=== PATIENT | female | born 1955 | race Caucasian/White ===

== ENCOUNTER 2018-04-14 11:34 | Observation (INO) ==
[2018-04-14 12:23] LABS: Basophils % 0.6 %; Eosinophils # 0.3 K/mcL (0.0-0.6); Eosinophils % 5.4 %; Hematocrit 34.8 % (35.3-44.9); Hemoglobin 11.2 g/dL (11.5-15.4); Immature Granulocytes % 0.6 % (0-4); Lymphocytes # 1.6 K/mcL (0.6-4.6); Lymphocytes % 29.9 %; Mean Corpuscular HGB Conc 32.2 g/dL (31.6-35.5); Mean Corpuscular Hemoglobin 27.6 pg (28.0-33.3); Mean Corpuscular Volume 85.7 fL (83.0-100.0); Mean Platelet Volume 11.2 fL (9.4-12.4); Monocytes # 0.3 K/mcL (0.0-1.3); Monocytes % 5.9 %; Neutrophils # 3.1 K/mcL (1.6-8.9); Platelet Count 220 K/mcL (140-400); Red Blood Count 4.06 M/mcL (3.82-4.97); Red Cell Distribution Width 14.4 % (11.5-14.5); Segmented Neutrophils % 57.6 %
[2018-04-14 12:28] LABS: Prothrombin Time 11.3 Seconds (9.4-12.1)
[2018-04-14] MEDS ORDERED: Aspirin 81 MG TAB.CHEW PO STA (12:47)
--- NOTE | 2018-04-14 12:47 | Emergency Department Note ---
Disposition Clinical Impression: Abnormal EKG Chest pain Qualifiers: Chest pain type: unspecified Qualified Code(s): R07.9 - Chest pain, unspecified Disposition: Admitted As Inpatient Condition: Good Chest Pain HPI - General Chief Complaint: ED Chest Pain Stated Complaint: chest pain Source: patient, family Limitations: no limitations Vital Signs Reviewed: Yes Nursing Notes Reviewed: Yes - History of Present Illness HPI Narrative: Patient is a diabetic, hypertensive, hyperlipidemia who presents to the emergency department for evaluation of chest pain. Started at 8 AM. Describes in the center of her chest. Sharp without radiation however there is associated pressure that also radiates to left arm. Associated nausea and mild left pheresis that resolved upon arrival to the emergency department. Patient continues to have chest pain which she describes as 6 out of 10. Significant family history of heart disease. Last stress test was 3 years ago. Severity scale (1-10): 8 - Related Data Allergies Allergy/AdvReac Type Severity Reaction Status Date / Time No Known Allergies Allergy Verified 04/14/18 11:39 Review of Systems: CONSTITUTIONAL: Diaphoresis No weight loss, fever, chills, weakness or fatigue. HEENT: Eyes: No visual changes. Ears, Nose, Throat: No hearing loss, difficulty talking or unable to swallow. SKIN: No rash or itching. CARDIOVASCULAR: Chest pain and pressure RESPIRATORY: No shortness of breath, cough or sputum. GASTROINTESTINAL: Nausea No anorexia, vomiting or diarrhea. No abdominal pain or blood. GENITOURINARY: No burning on urination or hematuria. NEUROLOGICAL: No headache, dizziness, syncope, paralysis, ataxia, numbness or tingling in the extremities. No change in bowel or bladder control. MUSCULOSKELETAL: No muscle pain, back pain, joint pain or stiffness. Chest Pain PMH - Past Medical History Medical history: Reports: diabetes, hyperlipidemia, hypertension, thyroid disease Psychiatric history: Reports: no psych history - Social History Smoking Status: Never smoker Alcohol use: Reports: occasionally Drug use: Reports: none Physical Exam General: Well appearing, nontoxic, no acute distress Head: Normocephalic Atraumatic Eyes: PERRL, EOMI ENT: Airway patent, no stridor Neck: supple, Chest: Mildly decreased breath sounds bilaterally with associated mild wheeze Cardiac: Regular rate and rhythm, no murmurs, rubs or gallops Abdomen: soft, nontender, nondistended; no guarding, rebound, or tenderness to percussion Musculoskeletal: Calves symmetric, nontender, Skin: No rash, normal skin tone Neuro: Alert and Oriented to person, place, and time; No focal deficit - General Limitations: no limitations General appearance: alert, in no apparent distress Course - Reevaluation(s) Reevaluation #1: Patient was given aspirin. Nitroglycerin improved symptoms. EKG changes are nonspecific concerning for ACS. Patient will be admitted for further evaluation. - Consultations Consultation #1: Discussed with hospitalist. Patient acceptedt for admission. Vital Signs Temperature 98.7 F 04/14/18 11:39 Pulse Rate 75 04/14/18 11:39 Respiratory Rate 20 04/14/18 11:39 Blood Pressure 175/94 04/14/18 11:39 O2 Sat by Pulse Oximetry 97 04/14/18 11:39 Temperature 98.7 F 04/14/18 11:56 Pulse Rate 75 04/14/18 11:56 Respiratory Rate 18 04/14/18 14:01 Blood Pressure 139/79 04/14/18 14:01 O2 Sat by Pulse Oximetry 97 04/14/18 11:56 Oxygen Delivery Oxygen Delivery Room Air Chest Pain - Medical Records Medical records reviewed: Yes I reviewed the patient's medical records. - Lab Data Lab results reviewed: Yes I reviewed the patient's lab results. Result diagrams: 04/14/18 12:00 04/14/18 12:00 Lab Results 04/14/18 04/14/18 04/14/18 Range/Units 12:00 12:00 12:00 WBC 5.4 (4.3-11.1) K/mcL RBC 4.06 (3.82-4.97) M/mcL Hgb 11.2 L (11.5-15.4) g/dL Hct 34.8 L (35.3-44.9) % MCV 85.7 (83.0-100.0) fL MCH 27.6 L (28.0-33.3) pg MCHC 32.2 (31.6-35.5) g/dL RDW 14.4 (11.5-14.5) % Plt Count 220 (140-400) K/mcL MPV 11.2 (9.4-12.4) fL Immature Gran % 0.6 (0-4) % Seg Neutrophils % 57.6 % Lymphocytes % 29.9 % Monocytes % 5.9 % Eosinophils % 5.4 % Basophils % 0.6 % Neutrophils # 3.1 (1.6-8.9) K/mcL Lymphocytes # 1.6 (0.6-4.6) K/mcL Monocytes # 0.3 (0.0-1.3) K/mcL Eosinophils # 0.3 (0.0-0.6) K/mcL Basophils # 0.0 (0.0-0.2) K/mcL PT 11.3 (9.4-12.1) Seconds INR 1.0 Sodium 139 (136-145) mEq/L Potassium 3.9 (3.5-5.1) mEq/L Chloride 104 (98-107) mEq/L Carbon Dioxide 22 L (23-29) mEq/L BUN 10 (8-23) mg/dL Creatinine 0.81 (0.60-1.20) mg/dL Est GFR ( Amer) > 60 (> 60) Est GFR (Non-Af Amer) > 60 (> 60) BUN/Creatinine Ratio 12 (6-26) Glucose 210 H (70-105) mg/dL Calculated Osmolality 293 (280-300) Calcium 9.5 (8.6-10.3) mg/dL Troponin I < 0.03 (< 0.04) ng/mL - Radiology Data Radiology results reviewed: Yes I reviewed the patient's radiology results. - EKG Data EKG attestation: Yes I reviewed and interpreted this EKG. EKG results narrative: EKG shows sinus rhythm with a ventricular rate of 69. MO interval 164. QRS 96. QTC 426. Patient has no significant ST elevations or depressions however she does have T-wave inversions in V2 through V6. Inversions in 1 and aVL. He is are new changes compared to previous of 07/17/2012. Heart Score - Score History: Highly Suspicious EKG: Non Specific repolarisation Disturbance Age: 45-65 Risk Factors: Equal/Greater than 3 risk factor or history of atherosclerotic disease Troponin: Less than normal limit HEART Score Total: 6
[2018-04-14 12:49] LABS: Troponin I < 0.03 ng/mL (< 0.04)
[2018-04-14] MEDS ORDERED: Ipratropium/Albuterol Neb 3 ML IH ONE (12:56)
[2018-04-14] MEDS: Nitroglycerin 0.4 MG TAB.SUBL SL PRN ×2 (12:59→13:07)
[2018-04-14 13:01] LABS: BUN/Creatinine Ratio 12 (6-26); Blood Urea Nitrogen 10 mg/dL (8-23); Calcium 9.5 mg/dL (8.6-10.3); Carbon Dioxide 22 mEq/L (23-29); Chloride 104 mEq/L (98-107); Glucose 210 mg/dL (70-105); Osmolality,Calculated 293 (280-300); Potassium 3.9 mEq/L (3.5-5.1); Sodium 139 mEq/L (136-145); eGFR For Non-African Americans > 60 (> 60)
[2018-04-14] MEDS ORDERED: Acetaminophen 325 MG TABLET PO PRN (15:19)
[2018-04-14] MEDS ORDERED: *HR* HYDROcodone/Acet 5/325 mg TABLET PO PRN (15:19)
[2018-04-14] MEDS ORDERED: Naloxone 0.4 MG/ML INJ IVP PRN (15:19)
[2018-04-14] MEDS ORDERED: *HR* OxyCODONE Immed Rel 5 MG TABLET PO PRN (15:19)
[2018-04-14] MEDS ORDERED: *HR* Dextrose 50 % in Water (Syg) 50 ML SYRINGE IVP PRN (15:24)
[2018-04-14] MEDS ORDERED: D5% in Water 1,000 ML IVC PRN (15:24)
[2018-04-14] MEDS ORDERED: Dextrose Gel 15 GM/37.5 ML TUBE PO PRN ×2 (15:24)
[2018-04-14] MEDS ORDERED: Ondansetron 4 MG/2 ML VIAL IVP PRN (15:25)
--- NOTE | 2018-04-14 16:16 | Internal Med History&Physical ---
<YanetLasha - Last Filed: 04/14/18 22:51> Date of Encounter: 04/14/18 Time of Encounter: 14:30 Internal Medicine - H&P: HPI Chief complaint: CP Admitted From: Emergency Dept Plans for Post Hospital Care: Home History of present illness: Ms. Cadena is a 62 year old female w/PMH of diabetes, HLD, HTN, thyroid disease , rheumatoid arthritis, and chronic back pain presents from the ED with chief complaint of chest pain that began at 8 AM today as centralized pain in the chest that patient describes as sharp and stabbing with pressure that comes and goes. Patient states symptoms began at rest. Patient reports also having similar symptoms Wednesday evening as well as several years ago. Associated symptoms: Nausea, and pain in left leg and left arm. No alleviating or aggravating factors. Patient states she had previous cardiac workup approximately 3 years ago that was unremarkable. Denies recent illness, fever, chills, vomiting, changes in vision, palpitations, shortness of breath, abdominal pain, chest congestion, dizziness, lightheadedness, numbness, tingling , pre-syncope, or syncope. Past Med Surg Social Fam HX - Past Medical History Source: patient, old records reviewed, obtained from family Medical history: diabetes, hyperlipidemia, hypertension, thyroid disease Psychiatric history: no psych history - Past Surgical History Surgical History: appendectomy, cholecystectomy, hysterectomy Additional surgical history: back surgery, tonsilectomy. - Social History Smoking Status: Never smoker Smokeless Tobacco Status: No Alcohol use: occasionally Drug use: none Occupational status: employed Current living situation: Home Activity Level: Independent ambulation Recent Out of Country Travel Within the Last 8 Weeks: No Exposure or Possible Exposure to Illness During Travel: No - Family History Father Race: Family Member Ethnicity: Non- Living Status: Age at : 62 Cause of : [place] Hx Family Cardiac Disorders: Yes ([place], CAD, HTN, CVA) Hx Family Endocrine Disorder: Yes (DM) Hx Family Neurologic Disorders: Yes (CVA) Mother Race: Family Member Ethnicity: Non- Living Status: Age at : 83 Cause of : CHF Hx Family Cardiac Disorders: Yes (CHF, CAD, CVA) Hx Family Neurologic Disorders: Yes (CVA, Dementia) Sister Race: Family Member Ethnicity: Non- Living Status: Still Living Hx Family Cardiac Disorders: Yes (Afib, HTN, HLD) Internal Medicine - H&P: Meds Albuterol Sulfate [Albuterol Inhaler] 2 puff IH Q4H PRN 04/14/18 [History] Benzonatate [Tessalon] 200 mg PO Q8H 04/14/18 [History] Fluticasone Propionate Nasal [Flonase] 50 mcg NS BID 04/14/18 [History] Gemfibrozil [Lopid] 600 mg PO BID 04/14/18 [History] GlipiZIDE [Glipizide ER] 10 mg PO BID 04/14/18 [History] Levothyroxine Sodium 88 mcg PO DAILY 04/14/18 [History] Losartan/Hydrochlorothiazide [Losartan-Hctz 50-12.5 mg Tab] 1 tab PO DAILY 04/14 [History] Metformin HCl [Metformin HCl] 1,000 mg PO BIDWM 04/14/18 [History] Pantoprazole Sodium [Protonix] 40 mg PO DAILY 04/14/18 [History] Promethazine/Codeine [Phenergan/Codeine] 5 ml PO Q6HR PRN 04/14/18 [History] Simvastatin [Zocor] 40 mg PO HS 04/14/18 [History] amLODIPine [Norvasc] 5 mg PO DAILY 04/14/18 [History] 3 Allergy/AdvReac Type Severity Reaction Status Date / Time No Known Allergies Allergy Verified 04/14/18 11:39 All Systems PM: A 10-system review of systems was performed and is negative for pertinent findings except as documented above in the HPI. - Constitutional Constitutional: no chills, no fever(s), no night sweats - EENT Eyes: no change in vision, no discharge, no pain, no photophobia Ears: no ear discharge, no ear pain, no tinnitus Nose, mouth and throat: no dysphagia, no nasal discharge, no neck pain, no sore throat - Breasts Breasts: as per HPI - Cardiovascular Cardiovascular ROS IM: as per HPI, chest pain, no diaphoresis, no dyspnea, no lightheadedness, no palpitations, no syncope - Respiratory Respiratory: no cough, no dyspnea, no wheezing, no excessive phlegm production - Gastrointestinal Gastrointestinal: as per HPI, nausea, no abdominal pain, no diarrhea, no hematemesis, no hematochezia, no melena, no vomiting - Genitourinary Genitourinary: no change in urinary stream, no dysuria, no flank pain, no hematuria Menstruation: as per HPI, post hysterectomy - Musculoskeletal Musculoskeletal ROS IM: as per HPI, arthralgias, back pain, no numbness, no tingling - Integumentary Integumentary IM: no rash, no unusual bruising - Neurological Neurological ROS: no confusion, no convulsions, no focal weakness, no numbness, no tingling, no tremor(s) - Psychiatric Psychiatric: as per HPI - Endocrine Endocrine IM: as per HPI - Hematologic/Lymphatic Hematologic/Lymphatic: no easy bruising - Allergic/Immunologic Allergic/Immunologic: as per HPI - Constitutional Vitals: Temp Pulse Resp BP Pulse Ox 97.8 F 61 18 153/92 98 04/14/18 14:28 04/14/18 14:28 04/14/18 14:28 04/14/18 14:28 04/14/18 14:28 General appearance: Present: cooperative, A&O X 3, pleasant, no acute distress, obese, answers questions appropriately - Head Head exam: Present: atraumatic, normocephalic - Eye Eye exam: Present: PERRL, conjuntiva pink, sclera anicteric Pupils: Present: PERRL - ENT ENT exam: Present: normal exam - Neck Neck exam general surgery: Present: normal inspection, supple, trachea midline. Absent: lymphadenopathy - Respiratory Respiratory exam: Present: CTAB. Absent: accessory muscle use, rales, rhonchi, wheezes - Cardiovascular Cardiovascular exam: Present: RRR, +S1, +S2. Absent: diastolic murmur, gallop, rubs, systolic murmur - GI/Abdominal GI/Abdominal exam: Present: normal bowel sounds, soft, no peritoneal signs. Absent: distended, tenderness - Rectal Rectal exam: Present: deferred - Additional comments: exam deferred. - Extremities Exam Extremities exam: Present: warm, radial pulses palpable and symmetrical. Absent : calf tenderness, cyanotic, pedal edema - Back Exam Back exam: Present: normal inspection - Neurological Exam Neurological exam: Present: CN II-XII intact, oriented X3, no focal deficits. Absent: pronater drift, facial droop, speech deficit - Psychiatric Psychiatric exam: Present: normal affect, normal mood - Skin Skin exam: Present: dry, intact Internal Med - H&P Results - Labs CBC & Chem 7: 04/14/18 12:00 04/14/18 12:00 - EKG Data EKG shows normal: sinus rhythm - EKG Data Prior EKG available for review: yes EKG comments: 04/14/18 16:26 EKG dated 07/27/12 shows sinus rhythm with nonspecific anterolateral ST-T changes. EKG dated 04/14/18 shows sinus rhythm with ST deviation and moderate T-wave abnormality. Consider anterolateral ischemia. - Impressions Impressions Chest X-Ray 04/14/18 12:01 IMPRESSION: Bilateral right greater left hilar/perihilar prominence which is nonspecific and may relate to pneumonia, vascular congestion, bronchitis or possibly technique. RECOMMENDATIONS: Dedicated PA and lateral views of the chest to better assess D/ / Tere Luther MD / Tere Luther MD Interpreting Provider: Tere Luther MD - Assessment and plan (1) Chest pain Current Visit: Yes Status: Acute Assessment and plan: Acute CP that patient states began this morning at 8 a.m. and has been intermittent. Patient reports chest pain as centralized in chest with radiation to her left arm and left leg. Associated symptoms: Nausea. Denies history of previous KS or stent placement. Also denies recent cardiac workup. Initial troponin <0.03. Will trend. Aspirin given in ED. Lipitor 80 mg now. Nitroglycerin SL when necessary. Continuous cardiac telemetry. Echocardiogram. Nothing by mouth at midnight for a.m. stress test if troponins remain normal. Consider cardiology consult if troponins, Echocardiogram, and/ or stress test results abnormal. Pt. discussed w/Dr. Velazquez who agrees w/plan of care. Pt. is high risk for further morbidity and cardiac event due to current CP symptoms for the past two years, Wednesday, and today that are unresolved, hx; and risk factors of diabetes, HLD, HTN, and current obesity. Observation. Qualifiers: Chest pain type: other chest pain Qualified Code(s): R07.89 - Other chest pain; R07.8 - Other chest pain (2) Abnormal EKG Current Visit: Yes Status: Acute Assessment and plan: Acute abnormal EKG today shows sinus rhythm with ST deviation and moderate T- wave abnormality. Consider anterolateral ischemia. Previous EKG on 07/27/12 shows sinus rhythm with nonspecific anterolateral ST-T changes. Continuous cardiac telemetry to monitor. Initial troponin <0.03. Will trend. (3) Nausea Current Visit: Yes Status: Acute Assessment and plan: Acute nausea w/CP sx. IVP Zofran 4 mg every 6 hours when necessary for nausea and vomiting. (4) Diabetes Current Visit: Yes Status: Chronic Assessment and plan: Hx of chronic diabetes. Hold metoprolol and continue glipizide. Add low-dose correction insulin sliding scale hypoglycemic protocol. BG checks before meals at bedtime. A1c in a.m. labs. Qualifiers: Diabetes mellitus type: type 2 Diabetes mellitus long term care phlebotomist insulin use: unspecified long term care phlebotomist insulin use status Diabetes mellitus complication status : with unspecified complications Qualified Code(s): E11.8 - Type 2 diabetes mellitus with unspecified complications (5) HLD (hyperlipidemia) Current Visit: Yes Status: Chronic Assessment and plan: Hx of chronic HLD. Lipid panel in a.m. labs. 80 mg Lipitor ONCE d/t CP. Continue Lopid and Zocor. Qualifiers: Hyperlipidemia type: pure hypercholesterolemia Qualified Code(s): E78.00 - Pure hypercholesterolemia, unspecified; E78.0 - Pure hypercholesterolemia (6) HTN (hypertension) Current Visit: Yes Status: Chronic Assessment and plan: Hx of chronic HTN. Monitor pt. and VS. continue patient's losartan/ hydrochlorothiazide and Norvasc. IVP hydralazine 10 mg every 6 hours when necessary with parameters. Qualifiers: Hypertension type: essential hypertension Qualified Code(s): I10 - Essential (primary) hypertension (7) Thyroid disease Current Visit: Yes Status: Chronic Assessment and plan: Hx of chronic thyroid disease. TSH and Free T4 in a.m. labs. Continue patient' s levothyroxine. (8) DVT prophylaxis Current Visit: Yes Status: Acute Assessment and plan: Bilateral SCDs on LEs for DVT prophylaxis d/t pts. report of intermittent rectal bleeding that she has been checked for but of unknown etiology. - Time Spent With Patient Total time spent is greater than 50% in coordination of care (as documented) at patient's floor/unit and/or counseling patient: Greater than 35 minutes <Eddie Velazquez - Last Filed: 04/15/18 12:58> Date of Encounter: 04/14/18 Internal Medicine - H&P: HPI History of present illness: Ms. Cadena is a 62 year old female All Systems PM: A 10-system review of systems was performed and is negative for pertinent findings except as documented above in the HPI. - Constitutional Vitals: Temp Pulse Resp BP Pulse Ox 98.3 F 70 18 136/78 97 04/15/18 12:39 04/15/18 12:39 04/15/18 12:39 04/15/18 12:39 04/15/18 12:39 Internal Med - H&P Results - Labs CBC & Chem 7: 04/15/18 01:17 04/15/18 01:17 Labs: Short CBC 04/15/18 Range/Units 01:17 WBC 4.9 (4.3-11.1) K/mcL Hgb 10.6 L (11.5-15.4) g/dL Hct 32.8 L (35.3-44.9) % Plt Count 207 (140-400) K/mcL Neutrophils # 2.2 (1.6-8.9) K/mcL BMP 04/15/18 01:17 Sodium 136 Potassium 4.0 Chloride 111 H Carbon Dioxide 26 BUN 11 Creatinine 0.92 Glucose 211 H Calcium 9.4 Cardiac Enzymes 04/14/18 04/15/18 Range/Units 19:32 01:17 Troponin I < 0.03 < 0.03 (< 0.04) ng/mL Liver Function 04/15/18 Range/Units 01:17 Total Bilirubin 0.4 (0.3-1.0) mg/dL AST 20 (13-39) Units/L ALT 15 (7-52) Units/L Alkaline Phosphatase 63 (34-104) Units/L Albumin 4.2 (3.5-5.7) g/dL - Impressions ITS Impressions Echocardiogram 04/14/18 15:23 Impressions: LVEF 60%. Moderate left ventricular diastolic dysfunction. Normal right ventricular structure and function. Mild tricuspid regurgitation. No pulmonary hypertension. Left Ventricular Wall Motion: Rest Echo Findings All wall segments showed normal motion. Findings: Study Quality * Technically adequate exam. ECG Findings * Normal sinus rhythm. Left Ventricle * LVEF 60%. * Normal LV chamber size, wall thickness and function. * Moderate left ventricular diastolic dysfunction. Right Ventricle * Normal right ventricular structure and function. Left Atrium * Mildly dilated left atrium. Right Atrium * Normal right atrial size. Aortic Valve * No aortic regurgitation. * Aortic valve not well visualized. * No aortic stenosis. Mitral Valve * Normal mitral valve structure. * No mitral stenosis. * Trace mitral regurgitation. Tricuspid Valve * Normal tricuspid valve structure. * Mild tricuspid regurgitation. Pulmonic Valve * Pulmonic valve is not well visualized. * No pulmonic stenosis. * No pulmonic regurgitation. Pulmonary Artery * Pulmonary artery not well visualized. Aorta * Normally sized aortic root. Pericardium * There is no pericardial effusion present. Interatrial Septum * No evidence of PFO by color Doppler. IVC * The IVC is not well evaluated. - Attending Attestation I SAW/EXAMINED AND EVALUATED THE PATIENT WITH THE MEDICAL REIMBURSEMENT MANAGER/PA/ ON THE DAY OF ADMISSION. THE CASE WAS DISCUSSED WITH HIM/HER. I AGREE WITH THE FINDINGS/PLAN , DOCUMENTED IN THE MEDICAL REIMBURSEMENT MANAGER/PA'S H&P. THE DOCUMENT WAS EDITED BY ME TO CORRECT ERRORS AND ADD MISSING DATA. - Assessment and plan (1) Chest pain Current Visit: Yes Status: Acute Qualifiers: Chest pain type: other chest pain Qualified Code(s): R07.89 - Other chest pain; R07.8 - Other chest pain (2) Abnormal EKG Current Visit: Yes Status: Acute (3) Nausea Current Visit: Yes Status: Acute (4) Diabetes Current Visit: Yes Status: Chronic Qualifiers: Diabetes mellitus type: type 2 Diabetes mellitus fci insulin use: unspecified fci insulin use status Diabetes mellitus complication status : with unspecified complications Qualified Code(s): E11.8 - Type 2 diabetes mellitus with unspecified complications (5) HLD (hyperlipidemia) Current Visit: Yes Status: Chronic Qualifiers: Hyperlipidemia type: pure hypercholesterolemia Qualified Code(s): E78.00 - Pure hypercholesterolemia, unspecified; E78.0 - Pure hypercholesterolemia (6) HTN (hypertension) Current Visit: Yes Status: Chronic Qualifiers: Hypertension type: essential hypertension Qualified Code(s): I10 - Essential (primary) hypertension (7) Thyroid disease Current Visit: Yes Status: Chronic (8) DVT prophylaxis Current Visit: Yes Status: Acute - Time Spent With Patient Total time spent is greater than 50% in coordination of care (as documented) at patient's floor/unit and/or counseling patient:
[2018-04-14] MEDS ORDERED: Promethazine/Codeine Oral Sryup 5 ML UDC PO PRN (17:24)
[2018-04-14] MEDS: Insulin LISPRO 300 UNITS/3 ML VIAL SQ SCH ×2 (18:00→20:47)
[2018-04-14] MEDS: Benzonatate 100 MG CAPSULE PO SCH (18:33)
[2018-04-14] MEDS: *HR* GlipiZIDE XL (24 HR) 10 MG TABLET PO SCH (20:46)
[2018-04-14] MEDS: Fluticasone Propionate Nasal 50 MCG/SPRAY BOTTLE NS SCH (20:47)
[2018-04-15 01:33] LABS: Basophils % 0.6 %; Eosinophils # 0.3 K/mcL (0.0-0.6); Hematocrit 32.8 % (35.3-44.9); Hemoglobin 10.6 g/dL (11.5-15.4); Immature Granulocytes % 0.4 % (0-4); Lymphocytes # 1.9 K/mcL (0.6-4.6); Lymphocytes % 39.6 %; Mean Corpuscular HGB Conc 32.3 g/dL (31.6-35.5); Mean Corpuscular Hemoglobin 27.6 pg (28.0-33.3); Mean Corpuscular Volume 85.4 fL (83.0-100.0); Mean Platelet Volume 10.9 fL (9.4-12.4); Monocytes # 0.4 K/mcL (0.0-1.3); Monocytes % 7.4 %; Neutrophils # 2.2 K/mcL (1.6-8.9); Platelet Count 207 K/mcL (140-400); Red Blood Count 3.84 M/mcL (3.82-4.97); Red Cell Distribution Width 14.6 % (11.5-14.5)
[2018-04-15 01:50] LABS: Alanine Aminotransferase 15 Units/L (7-52); Albumin 4.2 g/dL (3.5-5.7); Albumin/Globulin Ratio 1.8 (1.1-2.2); Alkaline Phosphatase 63 Units/L (34-104); Aspartate Amino Transferase 20 Units/L (13-39); BUN/Creatinine Ratio 12 (6-26); Bilirubin,Total 0.4 mg/dL (0.3-1.0); Blood Urea Nitrogen 11 mg/dL (8-23); Calcium 9.4 mg/dL (8.6-10.3); Carbon Dioxide 26 mEq/L (23-29); Chloride 111 mEq/L (98-107); Chol/HDL Ratio 3.9 (0-4.9); Cholesterol 168 mg/dL (< 200); Globulin 2.4 g/dL (2.4-3.5); Glucose 211 mg/dL (70-105); HDL Cholesterol 43 mg/dL (40-59); LDL Cholesterol,Calculated 76 mg/dL (0-99); Magnesium 1.5 mg/dL (1.6-2.6); Osmolality,Calculated 288 (280-300); Sodium 136 mEq/L (136-145); Total Protein 6.6 g/dL (6.4-8.9); Triglycerides 243 mg/dL (< 150); eGFR For Non-African Americans > 60 (> 60)
[2018-04-15 02:05] LABS: Thyroid Stimulating Hormone 4.197 mcIU/mL (0.340-5.600)
[2018-04-15] MEDS: Benzonatate 100 MG CAPSULE PO SCH ×3 (04:00→16:27)
--- NOTE | 2018-04-15 06:00 | Electrocardiograph Report ---
[place] [facility] Test Date: 2018-04-14 Pat Name: Juana Cadena Department: 103 Room: 3B38 Gender: F [employer] Permit Agent: : [id number] Requested By: [id number] Order Number: [id number] Reading MD: Tracy Ahuja Measurements Intervals [place] Rate: 69 P: 34 NE: 164 QRS: 40 QRSD: 96 T: 133 QT: 407 QTc: 426 Interpretive Statements SINUS RHYTHM ST DEVIATION AND MODERATE T-WAVE ABNORMALITY, CONSIDER ANTEROLATERAL ISCHEMIA [- 0.1+ mV T WAVE IN V3-V6] Electronically Signed On 04-15-2018 5:59:19 EDT by Tracy Ahuja
[2018-04-15] MEDS ORDERED: Regadenoson 0.4 MG/5 ML SYRINGE IVP ONE (06:20)
[2018-04-15] MEDS: Insulin LISPRO 300 UNITS/3 ML VIAL SQ SCH ×4 (07:28→21:09)
[2018-04-15 07:39] LABS: Estimated Average Glucose 223 mg/dl; Hemoglobin A1C 9.4 %
[2018-04-15] MEDS: *HR* GlipiZIDE XL (24 HR) 10 MG TABLET PO SCH (11:58)
[2018-04-15] MEDS: Losartan/HCTZ 50-12.5 TABLET PO SCH (11:59)
[2018-04-15] MEDS: amLODIPine 5 MG TABLET PO SCH (11:59)
[2018-04-15] MEDS: Fluticasone Propionate Nasal 50 MCG/SPRAY BOTTLE NS SCH ×2 (12:01→21:08)
--- NOTE | 2018-04-15 16:00 | Internal Med Progress Note ---
Hospitalist Progress Note - Encounter Date of Encounter: 04/15/18 Time of Encounter: 15:48 - Subjective Interval History: Patient was seen and examined at bedside earlier today. She originally presented to the emergency department with centralized chest pain. Past medical history of diabetes hyperlipidemia hypertension thyroid disease. Troponins were negative EKG with ST deviation and moderate T-wave abnormality. EKG. She underwent a cardiac stress test which did reveal a small sized partially fixed very mild intensity distal anterior wall stress perfusion. Cardiology has been consulted - Exam Vitals: Temp Pulse Resp BP Pulse Ox 98.3 F 70 18 136/78 97 04/15/18 12:39 04/15/18 12:39 04/15/18 12:39 04/15/18 12:39 04/15/18 12:39 Exam: Skin: Free of rash and discoloration. Eyes: Sclera is white. There is no discharge from eyes. ENMT: Oral/pharyngeal mucosa is normal in appearance. There is no discharge from nose or ears. Respiratory: Normal breath sounds with no crackles and wheezes bilaterally. CV: Heart is regular with no gallop or murmur. GI: Abdomen is flat and soft with no palpable mass or visceromegaly. : There is no tenderness in patient's flanks bilaterally. Neuro exam: He has good strength in upper and lower extremities. He has normal eye movements. Psychiatric: He has normal affect. His thought process is appropriate to the situation. - Assessment and Plan (1) Chest pain Current Visit: Yes Status: Acute Assessment and Plan: - Troponins negative 3 Echocardiogram completed Impressions: LVEF 60%. Moderate left ventricular diastolic dysfunction. Normal right ventricular structure and function. Mild tricuspid regurgitation. No pulmonary hypertension. Underwent cardiac stress test which reveal small sized partially fixed very mild intensity distal anterior wall stress perfusion defect Cardiology has been consulted Nitroglycerin as needed for chest pain Continue with aspirin and statin ARB (2) Abnormal EKG Current Visit: Yes Status: Acute Assessment and Plan: Acute abnormal EKG today shows sinus rhythm with ST deviation and moderate T- wave abnormality. Consider anterolateral ischemia. Previous EKG on 07/27/12 shows sinus rhythm with nonspecific anterolateral ST-T changes. Continuous cardiac telemetry to monitor. Troponins negative 3 (3) Nausea Current Visit: Yes Status: Acute Assessment and Plan: Nausea with chest pain Zofran as needed (4) Diabetes Current Visit: Yes Status: Chronic Assessment and Plan: Accu-Cheks before meals at bedtime for sinus scale insulin hold oral medications for now resumed upon discharge (5) HLD (hyperlipidemia) Current Visit: Yes Status: Chronic Assessment and Plan: Continue with Lopid and Zocor (6) HTN (hypertension) Current Visit: Yes Status: Chronic Assessment and Plan: Continue with losartan and hydrochlorothiazide and Norvasc IVP hydralazine 10 mg every 6 hours as needed for blood pressure greater than 180 (7) Thyroid disease Current Visit: Yes Status: Chronic Assessment and Plan: Hx of chronic thyroid disease. Continue patient's levothyroxine. (8) DVT prophylaxis Current Visit: Yes Status: Acute Assessment and Plan: Bilateral SCDs on LEs for DVT prophylaxis d/t pts. report of intermittent rectal bleeding that she has been checked for but of unknown etiology. - Time Spent with Patient Total time spent is greater than 50% in coordination of care (as documented) at patient's floor/unit and/or counseling patient: Internal Medicine: Result - Labs CBC & Chem 7: 04/15/18 01:17 04/15/18 01:17 Labs: Short CBC 04/15/18 Range/Units 01:17 WBC 4.9 (4.3-11.1) K/mcL Hgb 10.6 L (11.5-15.4) g/dL Hct 32.8 L (35.3-44.9) % Plt Count 207 (140-400) K/mcL Neutrophils # 2.2 (1.6-8.9) K/mcL BMP 04/15/18 01:17 Sodium 136 Potassium 4.0 Chloride 111 H Carbon Dioxide 26 BUN 11 Creatinine 0.92 Glucose 211 H Calcium 9.4 Cardiac Enzymes 04/14/18 04/15/18 Range/Units 19:32 01:17 Troponin I < 0.03 < 0.03 (< 0.04) ng/mL Liver Function 04/15/18 Range/Units 01:17 Total Bilirubin 0.4 (0.3-1.0) mg/dL AST 20 (13-39) Units/L ALT 15 (7-52) Units/L Alkaline Phosphatase 63 (34-104) Units/L Albumin 4.2 (3.5-5.7) g/dL - ABG Interpretation ABG results: PT/INR, D-dimer PT 11.3 Seconds (9.4-12.1) 04/14/18 12:00 D-Dimer 328 ng/mLFEU (0-500) 04/14/18 16:01 - Impressions Impressions Echocardiogram 04/14/18 15:23 Impressions: LVEF 60%. Moderate left ventricular diastolic dysfunction. Normal right ventricular structure and function. Mild tricuspid regurgitation. No pulmonary hypertension. Left Ventricular Wall Motion: Rest Echo Findings All wall segments showed normal motion. Findings: Study Quality * Technically adequate exam. ECG Findings * Normal sinus rhythm. Left Ventricle * LVEF 60%. * Normal LV chamber size, wall thickness and function. * Moderate left ventricular diastolic dysfunction. Right Ventricle * Normal right ventricular structure and function. Left Atrium * Mildly dilated left atrium. Right Atrium * Normal right atrial size. Aortic Valve * No aortic regurgitation. * Aortic valve not well visualized. * No aortic stenosis. Mitral Valve * Normal mitral valve structure. * No mitral stenosis. * Trace mitral regurgitation. Tricuspid Valve * Normal tricuspid valve structure. * Mild tricuspid regurgitation. Pulmonic Valve * Pulmonic valve is not well visualized. * No pulmonic stenosis. * No pulmonic regurgitation. Pulmonary Artery * Pulmonary artery not well visualized. Aorta * Normally sized aortic root. Pericardium * There is no pericardial effusion present. Interatrial Septum * No evidence of PFO by color Doppler. IVC * The IVC is not well evaluated. Consult Discharge Plan - Plan Referrals: Lasha Comer DO [Primary Care Provider] - 04/26/18 12:00 pm (1) Chest pain Qualifiers: Chest pain type: other chest pain Qualified Code(s): R07.89 - Other chest pain; R07.8 - Other chest pain (4) Diabetes Qualifiers: Diabetes mellitus type: type 2 Diabetes mellitus correction insulin use: unspecified correction insulin use status Diabetes mellitus complication status : with unspecified complications Qualified Code(s): E11.8 - Type 2 diabetes mellitus with unspecified complications (5) HLD (hyperlipidemia) Qualifiers: Hyperlipidemia type: pure hypercholesterolemia Qualified Code(s): E78.00 - Pure hypercholesterolemia, unspecified; E78.0 - Pure hypercholesterolemia (6) HTN (hypertension) Qualifiers: Hypertension type: essential hypertension Qualified Code(s): I10 - Essential (primary) hypertension
--- NOTE | 2018-04-15 17:40 | Cardiology Consult Note ---
Date of Encounter: 04/15/18 Time of Encounter: 17:30 Assessment and Plan (1) Abnormal stress test Current Visit: Yes Status: Acute Abnormal nuclear exercise stress test reviewed with the family. Small sized, partially fixed very mild intensity distal anterior wall stress perfusion defect possibly worse during stress. While findings may represent artifact, reversible ischemia cannot be excluded. No perfusion evidence for infarct. Exercise ECG is non diagnostic for ischemia due to non-specific ST and T wave abnormalities. The patient demonstrated a blunted response blood pressure response. Patient had 1-2/10 chest pain during exercise. Gated EF = 70%. Perfusion imaging was equivocal. Blunted blood pressure noted. Multiple risk factors for CAD including DM type II, HTN , and HLD. I discussed risk factor modification and medical management vs proceeding with [facility]. She is considering LHC. Okay to consider out-pt follow-up to set up LHC. Add asa and bb. Continue statin. (2) Chest pain Current Visit: Yes Status: Acute Typical chest pain symptoms. Occur with activity. Also has some reproducible pain with her arthritis. TTE shows preserved EF. Moderate diastolic dysfunction. Mild TR. See plan above. NTG PRN SL. Qualifiers: Chest pain type: other chest pain Qualified Code(s): R07.89 - Other chest pain; R07.8 - Other chest pain Discussion w patient/family: The assessment and plan as outlined above was discussed with the patient and/or family members who expressed understanding and agreement. All questions were answered. Thank you for involving us in the care of your patient. Please call with any questions. History of Present Illness Consult date: 04/15/18 Requesting physician: Zuleika Arriaga Consult reason: abnormal stress Chief complaint: Chest pain History of present illness: Ms. Cadena is a 62 year old female with past medical history of HTN, HLD, DM type II, and obesity who presented with the c/o chest pain. Reports she was working at [employer] when she developed mid sternal chest heaviness and sharp pains. Denies SOB or palpitations. Denies orthopnea, PND, or edema. Reports intermittent pain in her chest she always felt was due to her osteoarthritis. Last Wednesday she did noticed increased pressure feeling in her chest after walking around a festival with her granddaughters. She took her blood pressure and it was found to be 170/ 97. She was sent to the ED. Her initial work-up was benign. She underwent stress test today that was found to be abnormal. Cardiology consulted for further evaluation. She is currently pain free. Past Med Surg Social Fam HX - Past Medical History Medical history: diabetes, hyperlipidemia, hypertension, thyroid disease Psychiatric history: no psych history - Past Surgical History Surgical History: appendectomy, cholecystectomy, hysterectomy Additional surgical history: back surgery, tonsilectomy. - Social History Smoking Status: Never smoker Smokeless Tobacco Status: No Alcohol use: occasionally Drug use: none - Family History Father Race: Family Member Ethnicity: Non- Living Status: Age at : 62 Cause of : IA Hx Family Cardiac Disorders: Yes (IA, CAD, HTN, CVA) Hx Family Endocrine Disorder: Yes (DM) Hx Family Neurologic Disorders: Yes (CVA) Mother Race: Family Member Ethnicity: Non- Living Status: Age at : 83 Cause of : CHF Hx Family Cardiac Disorders: Yes (CHF, CAD, CVA) Hx Family Neurologic Disorders: Yes (CVA, Dementia) Sister Race: Family Member Ethnicity: Non- Living Status: Still Living Hx Family Cardiac Disorders: Yes (Afib, HTN, HLD) Medications and Allergies Albuterol Sulfate [Albuterol Inhaler] 2 puff IH Q4H PRN 04/14/18 [History] Benzonatate [Tessalon] 200 mg PO Q8H 04/14/18 [History] Fluticasone Propionate Nasal [Flonase] 50 mcg NS BID 04/14/18 [History] Gemfibrozil [Lopid] 600 mg PO BID 04/14/18 [History] GlipiZIDE [Glipizide ER] 10 mg PO BID 04/14/18 [History] Levothyroxine Sodium 88 mcg PO DAILY 04/14/18 [History] Losartan/Hydrochlorothiazide [Losartan-Hctz 50-12.5 mg Tab] 1 tab PO DAILY 04/14 [History] Metformin HCl [Metformin HCl] 1,000 mg PO BIDWM 04/14/18 [History] Pantoprazole Sodium [Protonix] 40 mg PO DAILY 04/14/18 [History] Promethazine/Codeine [Phenergan/Codeine] 5 ml PO Q6HR PRN 04/14/18 [History] Simvastatin [Zocor] 40 mg PO HS 04/14/18 [History] amLODIPine [Norvasc] 5 mg PO DAILY 04/14/18 [History] 3 Allergy/AdvReac Type Severity Reaction Status Date / Time No Known Allergies Allergy Verified 04/14/18 11:39 All Systems Review: The remainder of the systems were reviewed and are negative Physical Examination Vital Signs, Last 4 Hours Temp Pulse Resp BP Pulse Ox 04/15/18 16:01 98.1 F 73 17 147/82 96 General: Conversant, No Apparent Distress HEENT: Atraumatic, Normocephaly, Mucus Membranes Moist Neck: No JVD, Normal carotid pulses Cardiac: Reg Rate and Rhythm, Normal S1 and S2, No Murmur Lungs: Normal Breath Sounds, No Wheeze, Rales, Rhonchi Neuro: Alert and responsive, No focal deficits noted Abdomen: Soft, Non-Tender Skin: No rashes noted on visualized skin Musculoskeletal: No Chest Wall Tenderness Extremities: No Clubbing, No Cyanosis, No Edema, Normal Pulses Results 04/15/18 01:17 04/15/18 01:17 Lab Results 04/14/18 04/15/18 04/15/18 19:32 01:17 01:17 WBC 4.9 Hgb 10.6 L Hct 32.8 L Plt Count 207 Sodium Potassium Chloride Carbon Dioxide BUN Creatinine Glucose Calcium Magnesium Total Bilirubin AST ALT Alkaline Phosphatase Troponin I < 0.03 < 0.03 TSH 04/15/18 04/15/18 01:17 01:17 WBC Hgb Hct Plt Count Sodium 136 Potassium 4.0 Chloride 111 H Carbon Dioxide 26 BUN 11 Creatinine 0.92 Glucose 211 H Calcium 9.4 Magnesium 1.5 L Total Bilirubin 0.4 AST 20 ALT 15 Alkaline Phosphatase 63 Troponin I TSH 4.197 - Imaging and Cardiology Stress Test: report reviewed Echo: report reviewed - EKG Interpretation EKG results cardiology: personally reviewed Consult Discharge Plan - Plan Referrals: Lasha Comer DO [Primary Care Provider] - 04/26/18 12:00 pm
[2018-04-16] MEDS: Benzonatate 100 MG CAPSULE PO SCH ×3 (01:35→16:35)
[2018-04-16 04:27] LABS: Basophils % 0.7 %; Eosinophils # 0.3 K/mcL (0.0-0.6); Eosinophils % 5.7 %; Hematocrit 34.4 % (35.3-44.9); Hemoglobin 10.8 g/dL (11.5-15.4); Immature Granulocytes % 0.7 % (0-4); Lymphocytes # 1.7 K/mcL (0.6-4.6); Lymphocytes % 30.9 %; Mean Corpuscular HGB Conc 31.4 g/dL (31.6-35.5); Mean Corpuscular Hemoglobin 26.4 pg (28.0-33.3); Mean Corpuscular Volume 84.1 fL (83.0-100.0); Mean Platelet Volume 11.4 fL (9.4-12.4); Monocytes # 0.4 K/mcL (0.0-1.3); Monocytes % 7.5 %; Platelet Count 229 K/mcL (140-400); Red Blood Count 4.09 M/mcL (3.82-4.97); Red Cell Distribution Width 14.6 % (11.5-14.5); Segmented Neutrophils % 54.5 %
[2018-04-16 04:45] LABS: Alanine Aminotransferase 17 Units/L (7-52); Albumin 4.2 g/dL (3.5-5.7); Albumin/Globulin Ratio 1.8 (1.1-2.2); Alkaline Phosphatase 61 Units/L (34-104); Aspartate Amino Transferase 23 Units/L (13-39); BUN/Creatinine Ratio 12 (6-26); Bilirubin,Total 0.5 mg/dL (0.3-1.0); Blood Urea Nitrogen 11 mg/dL (8-23); Calcium 9.6 mg/dL (8.6-10.3); Carbon Dioxide 26 mEq/L (23-29); Chloride 104 mEq/L (98-107); Globulin 2.3 g/dL (2.4-3.5); Glucose 184 mg/dL (70-105); Osmolality,Calculated 292 (280-300); Potassium 3.9 mEq/L (3.5-5.1); Sodium 139 mEq/L (136-145); Total Protein 6.5 g/dL (6.4-8.9); eGFR For Non-African Americans > 60 (> 60)
[2018-04-16] MEDS: Insulin LISPRO 300 UNITS/3 ML VIAL SQ SCH ×4 (08:42→21:04)
[2018-04-16] MEDS: amLODIPine 5 MG TABLET PO SCH (08:48)
[2018-04-16] MEDS: Losartan/HCTZ 50-12.5 TABLET PO SCH (08:48)
[2018-04-16] MEDS: Fluticasone Propionate Nasal 50 MCG/SPRAY BOTTLE NS SCH ×2 (08:48→21:08)
[2018-04-16] MEDS: Aspirin 81 MG TAB.CHEW PO SCH (08:48)
--- NOTE | 2018-04-16 09:41 | Pre-Sedation Evaluation ---
Pre-sedation evaluation - Pre-sedation checklist Date of procedure: 04/16/18 Procedure: [facility] Recent Vitals: Last Vital Signs Temp 98.0 F 04/16/18 07:20 Pulse 66 04/16/18 07:20 Resp 16 04/16/18 07:20 BP 124/76 04/16/18 07:20 Pulse Ox 96 04/16/18 07:20 H&P (including ROS) documented in medical record: Yes Previous reaction to sedatives/anesthetics: No Dietary Status: NPO after Midnight Airway Assessment: Patient can open mouth completely, TMJ function normal, Micrognathia (under-bite, receding chin) absent, Neck with adequate range of motion Dentition: No loose teeth or bridges Possible difficult airway: No ASA Classification *see protocol: CLASS II-Mild systemic disease Plan of Care: Pt appropriate candidate for procedure/moderate/conscious sedation , Risks/benefits of procedure/sedation discussed w/ patient/family Cardiac Registry (Cardio Only) - Functional Capacity Functional Capacity: >=4 METS with symptoms - Clincal Frailty Scale Clinical Frailty Scale: Managing Well
[2018-04-16] MEDS ORDERED: Nitroglycerin 1,000 MCG/10 ML VIAL IV ONE (12:07)
[2018-04-16] MEDS ORDERED: *HR* Heparin 10,000 UNIT/10 ML VIAL ONE (12:07)
[2018-04-16] MEDS ORDERED: Heparin 1,000 UNITS/500 mL 500 ML ONE (12:07)
[2018-04-16] MEDS ORDERED: 0.9 % Sodium Chloride 1,000 ML ONE ×2 (12:07→12:38)
[2018-04-16] MEDS ORDERED: ISOVUE-370 200 ML INFUS..BTL IV ONE (12:07)
[2018-04-16] MEDS ORDERED: *HR* FentaNYL (PF) 100 MCG/2 ML VIAL ONE (12:37)
[2018-04-16] MEDS ORDERED: *HR* Midazolam HCl 2 MG/2 ML VIAL ONE (12:37)
--- NOTE | 2018-04-16 15:01 | Internal Med Progress Note ---
Hospitalist Progress Note - Encounter Date of Encounter: 04/16/18 Time of Encounter: 14:58 - Subjective Interval History: Seen and examined at bedside. Patient is new to me, information obtained from chart review and patient report. Says she feels better at time of my exam. No chest pain or shortness of breath. She would like to stay overnight for IV fluids for a CTA in the morning to rule out pulmonary embolism. - Exam Vitals: Temp Pulse Resp BP Pulse Ox 98.1 F 62 15 104/67 96 04/16/18 13:25 04/16/18 13:25 04/16/18 11:25 04/16/18 13:25 04/16/18 13:25 Exam: Skin: Free of rash and discoloration. Eyes: Sclera is white. There is no discharge from eyes. ENMT: Oral/pharyngeal mucosa is normal in appearance. There is no discharge from nose or ears. Respiratory: Normal breath sounds with no crackles and wheezes bilaterally. CV: Heart is regular with no gallop or murmur. GI: Abdomen is flat and soft with no palpable mass or visceromegaly. : There is no tenderness in patient's flanks bilaterally. Neuro exam: He has good strength in upper and lower extremities. He has normal eye movements. Psychiatric: He has normal affect. His thought process is appropriate to the situation. - Assessment and Plan (1) Chest pain Current Visit: Yes Status: Acute Assessment and Plan: Presented with stabbing chest pain. No shortness of breath. Serial troponins negative, EKG without acute ST changes. TTE with EF 60%, mild diastolic dysfunction. Underwent stress test which showed a small size, partially fixed very mild intensity defect. 04/16/18 [facility] with normal coronary arteries; no intervention required. Wells score with low probability of DVT, no tachycardia or hypotension however she reported stabbing chest pain that radiated to back. Start IV fluids, check chest CTA in the morning to assess for pulmonary embolism /dissection. (2) Abnormal EKG Current Visit: Yes Status: Acute Assessment and Plan: Acute abnormal EKG today shows sinus rhythm with ST deviation and moderate T- wave abnormality. Complete cardiac workup as noted above (3) Nausea Current Visit: Yes Status: Acute Assessment and Plan: Resolved (4) Diabetes Current Visit: Yes Status: Chronic Assessment and Plan: Accu-Cheks before meals at bedtime for sinus scale insulin hold oral medications for now resumed upon discharge (5) HLD (hyperlipidemia) Current Visit: Yes Status: Chronic Assessment and Plan: Continue with Lopid and Zocor (6) HTN (hypertension) Current Visit: Yes Status: Chronic Assessment and Plan: Continue with losartan and hydrochlorothiazide and Norvasc IVP hydralazine 10 mg every 6 hours as needed for blood pressure greater than 180 (7) Thyroid disease Current Visit: Yes Status: Chronic Assessment and Plan: Hx of chronic thyroid disease. Continue patient's levothyroxine. - Time Spent with Patient Total time spent is greater than 50% in coordination of care (as documented) at patient's floor/unit and/or counseling patient: Plan of Care Discussed with: patient Internal Medicine: Result - Labs CBC & Chem 7: 04/16/18 03:41 04/16/18 03:41 Labs: Short CBC 04/16/18 Range/Units 03:41 WBC 5.6 (4.3-11.1) K/mcL Hgb 10.8 L (11.5-15.4) g/dL Hct 34.4 L (35.3-44.9) % Plt Count 229 (140-400) K/mcL Neutrophils # 3.0 (1.6-8.9) K/mcL BMP 04/16/18 03:41 Sodium 139 Potassium 3.9 Chloride 104 Carbon Dioxide 26 BUN 11 Creatinine 0.90 Glucose 184 H Calcium 9.6 Liver Function 04/16/18 Range/Units 03:41 Total Bilirubin 0.5 (0.3-1.0) mg/dL AST 23 (13-39) Units/L ALT 17 (7-52) Units/L Alkaline Phosphatase 61 (34-104) Units/L Albumin 4.2 (3.5-5.7) g/dL - ABG Interpretation ABG results: PT/INR, D-dimer PT 11.3 Seconds (9.4-12.1) 04/14/18 12:00 D-Dimer 328 ng/mLFEU (0-500) 04/14/18 16:01 Consult Discharge Plan - Plan Referrals: Lasha Comer DO [Primary Care Provider] - 04/26/18 12:00 pm (1) Chest pain Qualifiers: Chest pain type: other chest pain Qualified Code(s): R07.89 - Other chest pain; R07.8 - Other chest pain (4) Diabetes Qualifiers: Diabetes mellitus type: type 2 Diabetes mellitus oil heaterman insulin use: unspecified longterm insulin use status Diabetes mellitus complication status : with unspecified complications Qualified Code(s): E11.8 - Type 2 diabetes mellitus with unspecified complications (5) HLD (hyperlipidemia) Qualifiers: Hyperlipidemia type: pure hypercholesterolemia Qualified Code(s): E78.00 - Pure hypercholesterolemia, unspecified; E78.0 - Pure hypercholesterolemia (6) HTN (hypertension) Qualifiers: Hypertension type: essential hypertension Qualified Code(s): I10 - Essential (primary) hypertension
[2018-04-16] MEDS ORDERED: Isovue-370 500 ML INFUS..BTL IV ONE (15:02)
[2018-04-16] MEDS: 0.9 % Sodium Chloride 1,000 ML IVC SCH (16:36)
[2018-04-16] MEDS: *HR* Heparin 5,000 UNIT/ML VIAL SQ SCH (21:07)
--- NOTE | 2018-04-16 22:25 | Invasive Diagnostic Lab Proc ---
Name: Juana Cadena Date of Study: 04/16/2018 Date: 1955 Ht: 72.0in Medical Record#: [id number] Age: 62 Wt: 220.46lb Gender: Female BSA: 2.22 Order #: [id number] BMI: 29.89 Physicians Procedure Physician: Monalisa Beckwith MD, FACC Referring MD: Lasha Comer DO Referring MD: Staff Name Position Time In Kyree Noble RN Monitor 12:24 PM Temitope Tabor RT (R) Scrub 12:24 PM Doc Sauceda RN Micromatic Hone Operator 12:25 PM Indications Indication Abnormal Test - Stress Procedures Performed Procedure L HRT ARTERY/VENTRICLE ANGIO Pre-Procedure Checklist Informed consent is complete signed and on chart. H&P is on chart. ID band is on and ID verified with patient. Patient NPO for procedure The procedure was described for the patient and questions were answered. Blood Pressure: 124/76 ECG is on chart. Plan of Care Patient will tolerate the procedure without complications. Adequate level of comfort will be maintained. Hemodynamics will remain stable Patient will recover from procedure without complications. Respiratory function will be maintained. Cardiac rhythm will remain stable. Patient temperature will be maintained. Patient and/or family have verbalized understanding of the procedure. Patient Education Chief Complaint/Reason for Test: Cardiac Cath Developmental Category: Adult (18-64 years) Developmentally Appropriate for Age: Yes Learning Barriers: None Education Needs: Procedure Education Method: Verbal Information Taught: Cardiac Cath Educational Evaluation: Able to repeat information Intravenous Access Time IV Size Location DC'd Fluid/Drip Rate Units RN 20g 1 09/16" Patent On Arrival Rt Wrist Allergies NKA No Known Allergies Vital Signs Time BP (mmHg) HR (bpm) O2 Sat. RR (bpm) LOC 124 / 76 66 96 % 16 12:41 PM / % 5 = Fully awake and oriented or at pre-proc level 12:41 PM / % 4 = Oriented but drowsy 12:56 PM / % 4 = Oriented but drowsy 12:44 PM 142 / 81 67 97 % 15 12:54 PM 125 / 81 66 98 % 15 12:58 PM 130 / 86 88 98 % 25 01:03 PM 133 / 81 60 99 % 36 Procedural Medications Time Medication Dose Units Method Given By 12:41 PM Oxygen 2 L/min nasal cannula Doc Sauceda RN 12:46 PM Versed 2 mg Intravenous Doc Sauceda RN 12:46 PM Fentanyl 50 mcg Intravenous Doc Sauceda RN 12:51 PM Lidocaine 2% 10 ml Subcutaneous Monalisa Beckwith MD, [facility] ASA Classification: CLASS II- Mild systemic disease (i.e. well-controlled diabetes, hypertension, asthma, cigarette smoking) Riley Score Preprocedure Postprocedure Activity 2- Moves 4 extremities sustained head lift Activity 2- Moves 4 extremities sustained head lift Circulation 2- SBP +/= 20 points of pre-anesthetic level Circulation 2- SBP +/= 20 points of pre-anesthetic level Consciousness 2- Awake and alert oriented x 3 Consciousness 2- Awake and alert oriented x 3 O2 Saturation 2- Able to maintain O2 satruation of 92% on room air O2 Saturation 2- Able to maintain O2 satruation of 92% on room air Respiratory 2- Able to deep breathe and cough well Respiratory 2- Able to deep breathe and cough well Total Score 10 Total Score 10 Contrast Agent: Isovue Diagnostic Contrast: 50 ml Total Contrast: 50 ml Fluoro Dose: 2763 mGy Procedure Log Time Note Enter By 12:24 PM Kyree Noble RN Position: Monitor Time in: 12:24 cedwards 12:25 PM Temitope Tabor RT (R) Position: Scrub Time in: 12:24 cedwards 12:25 PM Doc Sauceda RN Position: Micromatic Hone Operator Time in: 12:25 cedwards 12:25 PM Patient charges- Angio tray pack, Navilyst 3mm J, Pulse Oximetry and ACIST tubing and transducer cedwards 12:25 PM IV Supplies used: J loop Angio Cath. cedwards 12:25 PM ASA Class CLASS II- Mild systemic disease (i.e. well-controlled diabetes, hypertension, asthma, cigarette smoking) cedwards 12:25 PM CathStat 12:33 PM Pt arrived to lab systems analyst 2 at 12:33 cedwards 12:37 PM Case Start 12:40 PM Physician arrived 12:40 cedwards 12:40 PM Jacinto and vaishnavi completed cedwards 12:40 PM Sign in performed according to hospital policy. cedwards 12:40 PM Procedure start 12:40 cedwards 12:41 PM Time: 12:41 Patient comfortable and pain free: Yes cedwards 12:41 PM Time: 12:41LOC: 5 = Fully awake and oriented or at pre-proc level cedwards 12:41 PM Time: 12:41 Oxygen on at 2 L/min per nasal cannula by Doc Sauceda RN cedwards 12:43 PM NIBP STAT measurement started. 12:44 PM HR=67 bpm, NQQI=093/81 mmhg, SpO2=97.0 %, Resp=15 B/min 12:46 PM Time: 12:46 Versed 2 mg Intravenous Given by Doc Sauceda RN cedwards 12:47 PM Time: 12:46 Fentanyl 50 mcg Intravenous Given by Doc Sauceda RN cedwards 12:50 PM Clinical Presentation: Unstable angina cedwards 12:50 PM Time out performed according to hospital policy cedwards 12:51 PM Time: 12:51 10 ml Lidocaine 2% to right groin Subcutaneous Given by Monalisa Beckwith MD, [facility] cedwards 12:52 PM Recorded ECG: HR=65 Condition=Condition 1 12:53 PM Access obtained by percutaneous puncture. 5Fr 10cm Terumo [place] sheath placed in right Femoral artery. [id number] cedwards 12:53 PM Vitals capture started with the following parameters, Patient=Adult, Interval=5 min, Initial Etmamqur=215 mmHg, Deflation Rate=5 mmHg, Cuff placed on Right Arm 12:53 PM Pressure channel 1 zeroed. 12:54 PM HR=66 bpm, EBYO=011/81 mmhg, SpO2=98.0 %, Resp=15 B/min, EtCO2=32 mmHg 12:54 PM 5Fr FL 4 catheter inserted over the wire [facility] cedwards 12:54 PM 0.035 145cm Navilyst 3mmJ wire [id number] cedwards 12:54 PM LCA angiography performed in multiple views. cedwards 12:55 PM Recorded Pressure: Ao, HR=65, Condition=Condition 1 (Aorta) Ao 120/78/96 12:55 PM Recorded Pressure: Ao, HR=63, Condition=Condition 1 (Aorta) Ao 119/73/93 12:55 PM Catheter removed cedwards 12:56 PM 5Fr FR 4 catheter inserted over the wire [facility] cedwards 12:56 PM Time: 12:41LOC: 4 = Oriented but drowsy cedwards 12:57 PM RCA angiography performed in multiple views. cedwards 12:57 PM Catheter removed cedwards 12:58 PM 5Fr Pigtail catheter inserted over the wire [facility] cedwards 12:58 PM Catheter selectively placed in left ventricle cedwards 12:58 PM Bolus angiogram of left Ventricle complete: 8 ml/sec for a total of 24 mls cedwards 12:58 PM HR=88 bpm, AINS=671/86 mmhg, SpO2=98.0 %, Resp=25 B/min 12:59 PM Pressure channel 1 zeroed. 12:59 PM Recorded Pressure: LV, HR=91, Condition=Condition 1 (Left Ventricle) LV 105/10/14 12:59 PM Recorded Pressure: LV, Ao, HR=61, Condition=Condition 1 (Left Ventricle) LV 102/4/8, (Aorta) Ao 116/68/91 01:01 PM Catheter removed cedwards 01:01 PM Bolus angiogram of right Femoral complete: 4 ml/sec for a total of 7 mls cedwards 01:01 PM Procedure completed at 13:01 04/16/2018 cedwards 01:01 PM Did you address KATEY flow and Dominance? Yes cedwards 01:01 PM Coronary Dominance: Left cedwards 01:02 PM Isovue 370 - 200ml,1 Bottle(s) used. cedwards 01:02 PM Arterial sheath pulled, Mynx closure device used and was Successful [id number] S/N. cedwards 01:02 PM Estimated Blood Loss: minimal cedwards 01:02 PM Post ECG NSR cedwards 01:02 PM Post Blood Pressure 130/86 cedwards 01:03 PM Information taught Cardiac Cath and Mynx cedwards 01:03 PM Education needs Procedure, Plan of Care, Disease Process, and Responsibilities of Patient in Care cedwards 01:03 PM Learning barriers :None cedwards 01:03 PM Education Methods Verbal cedwards 01:03 PM Education evaluation Able to repeat information cedwards 01:03 PM Site status No bleeding/hematoma - Rt Groin as reported by Temitope Tabor RT (R) at 13:03 cedwards 01:03 PM Opsite applied cedwards 01:03 PM Plavix, Effient or Brilinta given No cedwards 01:03 PM HR=60 bpm, JCDB=642/81 mmhg, SpO2=99.0 %, Resp=36 B/min, EtCO2=35 mmHg 01:04 PM Complications: None cedwards 01:05 PM Sign out completed: Radiation Dose 206.17 mGy, 2763.15 cGy/cm2 Fluoro Time: 1.3 Isovue 370 - 200ml contrast 50 ml given by Monalisa Beckwith MD, [facility]. Complications: NoneCardiac Rehab Consult needed: NoConfirmed administered medications: Yes cedwards 01:08 PM Family placed in consult room. cedwards 01:09 PM Vitals capture stopped. 01:11 PM Time: 12:56LOC: 4 = Oriented but drowsy cedwards 01:15 PM Report given to Carolyn COLEY Pt taken to 3B Room #38. 13:15 cedwards 01:15 PM Patient out of room: 13:15 cedwards Complications Complication None None Hemodynamics Pressures Site Systolic/A Wave Diastolic/V Wave Mean AO 120 78 96 AO 119 73 93 LV 105 10 14 LV 102 4 8 AO 116 68 91 Post Procedure Information Blood Pressure: 130/86 mmHg Rhythm: NSR Post procedural instructions were given Closure Device Time Device Success/Fail 04/16/2018 1:10:00 PM MynxGrip Successful Site Checks Time Location Status Staff Sheath In? Note 01:03 PM Rt Groin No bleeding/hematoma Temitope Tabor RT (R) Pulses Updated by Kyree Noble RN on 04/16/2018 1:15:38 PM electronically signed on 04/16/2018 10:19:14 PM with status of Final
[2018-04-17] MEDS: Benzonatate 100 MG CAPSULE PO SCH ×2 (00:36→08:12)
[2018-04-17] MEDS: 0.9 % Sodium Chloride 1,000 ML IVC SCH (02:48)
[2018-04-17] MEDS: *HR* Heparin 5,000 UNIT/ML VIAL SQ SCH (05:22)
[2018-04-17 06:29] LABS: Basophils % 0.5 %; Eosinophils # 0.3 K/mcL (0.0-0.6); Eosinophils % 4.8 %; Hematocrit 33.8 % (35.3-44.9); Hemoglobin 10.7 g/dL (11.5-15.4); Immature Granulocytes % 0.3 % (0-4); Lymphocytes # 1.8 K/mcL (0.6-4.6); Lymphocytes % 29.3 %; Mean Corpuscular HGB Conc 31.7 g/dL (31.6-35.5); Mean Corpuscular Hemoglobin 26.8 pg (28.0-33.3); Mean Corpuscular Volume 84.5 fL (83.0-100.0); Monocytes # 0.4 K/mcL (0.0-1.3); Monocytes % 7.3 %; Neutrophils # 3.5 K/mcL (1.6-8.9); Platelet Count 226 K/mcL (140-400); Red Cell Distribution Width 14.7 % (11.5-14.5); Segmented Neutrophils % 57.8 %
[2018-04-17 08:01] LABS: Alanine Aminotransferase 17 Units/L (7-52); Albumin 4.1 g/dL (3.5-5.7); Albumin/Globulin Ratio 1.5 (1.1-2.2); Alkaline Phosphatase 59 Units/L (34-104); Aspartate Amino Transferase 29 Units/L (13-39); BUN/Creatinine Ratio 20 (6-26); Bilirubin,Total 0.5 mg/dL (0.3-1.0); Blood Urea Nitrogen 16 mg/dL (8-23); Calcium 9.4 mg/dL (8.6-10.3); Carbon Dioxide 23 mEq/L (23-29); Chloride 103 mEq/L (98-107); Globulin 2.7 g/dL (2.4-3.5); Glucose 196 mg/dL (70-105); Osmolality,Calculated 291 (280-300); Potassium 4.1 mEq/L (3.5-5.1); Sodium 137 mEq/L (136-145); Total Protein 6.8 g/dL (6.4-8.9); eGFR For Non-African Americans > 60 (> 60)
[2018-04-17] MEDS: Aspirin 81 MG TAB.CHEW PO SCH (08:12)
[2018-04-17] MEDS: Insulin LISPRO 300 UNITS/3 ML VIAL SQ SCH ×2 (08:12→11:51)
[2018-04-17] MEDS: Losartan/HCTZ 50-12.5 TABLET PO SCH (08:12)
[2018-04-17] MEDS: amLODIPine 5 MG TABLET PO SCH (08:12)
[2018-04-17] MEDS: Fluticasone Propionate Nasal 50 MCG/SPRAY BOTTLE NS SCH (08:13)
[2018-04-17 11:04] VITALS: BP 111/70
--- NOTE | 2018-04-17 13:19 | Discharge Summary ---
Orders not resulted at time of discharge: Pending orders 04/15/18 07:03 NM mikki perf SPECT multi [NM] Routine 04/18/18 04:00 BMP [Basic Metabolic Panel] AM 0400 04/19/18 04:00 BMP [Basic Metabolic Panel] AM 0400 04/20/18 04:00 BMP [Basic Metabolic Panel] AM 0400 04/21/18 04:00 BMP [Basic Metabolic Panel] AM 0400 Date of Encounter: 04/17/18 Time of Encounter: 13:17 - Discharge Diagnosis (1) Chest pain Priority: Primary Status: Acute Assessment and Plan: Presented with stabbing chest pain. No shortness of breath. Serial troponins negative, EKG without acute ST changes. TTE with EF 60%, mild diastolic dysfunction. Underwent stress test which showed a small size, partially fixed very mild intensity defect. 04/16/18 LHC with normal coronary arteries; no intervention required. Chest CTA negative for pulmonary embolism/dissection. No chest pain or shortness of breath at discharge. No further workup indicated at this time. Can follow-up with PCP as needed Qualifiers: Chest pain type: other chest pain Qualified Code(s): R07.89 - Other chest pain; R07.8 - Other chest pain (2) Abnormal EKG Priority: Primary Status: Acute Assessment and Plan: abnormal EKG today showed sinus rhythm with ST deviation and moderate T-wave abnormality. Complete cardiac workup as noted above (3) Nausea Priority: Primary Status: Acute Assessment and Plan: Resolved (4) Diabetes Priority: Secondary Status: Chronic Assessment and Plan: per hx. Uncontrolled. Hgb A1c 9.4%. Cont home diabetes medication regimen. Qualifiers: Diabetes mellitus type: type 2 Diabetes mellitus detention insulin use: unspecified termite control representative insulin use status Diabetes mellitus complication status : with unspecified complications Qualified Code(s): E11.8 - Type 2 diabetes mellitus with unspecified complications (5) HLD (hyperlipidemia) Priority: Secondary Status: Chronic Assessment and Plan: per hx. Cont home statin Qualifiers: Hyperlipidemia type: pure hypercholesterolemia Qualified Code(s): E78.00 - Pure hypercholesterolemia, unspecified; E78.0 - Pure hypercholesterolemia (6) HTN (hypertension) Priority: Secondary Status: Chronic Assessment and Plan: per hx. Cont home BP medications Qualifiers: Hypertension type: essential hypertension Qualified Code(s): I10 - Essential (primary) hypertension (7) Thyroid disease Priority: Secondary Status: Chronic Assessment and Plan: Hx of chronic thyroid disease. Continue levothyroxine. Hospital course: See assessment and plan for Hospital course Discharge discussed with: patient (Seen and examined at bedside. Says she is back to baseline would like to go home today. No chest pain or shortness of breath.) - Time Spent with Patient Total time spent providing and/or coordinating discharge services: - Discharge Medications Home Medications: Albuterol Sulfate [Albuterol Inhaler] 2 puff IH Q4H PRN 04/14/18 [History] Benzonatate [Tessalon] 200 mg PO Q8H 04/14/18 [History] Fluticasone Propionate Nasal [Flonase] 50 mcg NS BID 04/14/18 [History] Gemfibrozil [Lopid] 600 mg PO BID 04/14/18 [History] GlipiZIDE [Glipizide ER] 10 mg PO BID 04/14/18 [History] Levothyroxine Sodium 88 mcg PO DAILY 04/14/18 [History] Losartan/Hydrochlorothiazide [Losartan-Hctz 50-12.5 mg Tab] 1 tab PO DAILY 04/14 [History] Metformin HCl 1,000 mg PO BIDWM 04/14/18 [History] Pantoprazole Sodium [Protonix] 40 mg PO DAILY 04/14/18 [History] Promethazine/Codeine [Phenergan/Codeine] 5 ml PO Q6HR PRN 04/14/18 [History] Simvastatin [Zocor] 40 mg PO HS 04/14/18 [History] amLODIPine [Norvasc] 5 mg PO DAILY 04/14/18 [History] Allergies/Adverse Reactions: 3 Allergy/AdvReac Type Severity Reaction Status Date / Time No Known Allergies Allergy Verified 04/14/18 11:39 Date of admission: 04/14/18 13:51 Primary care physician: Lasha Comer DO Consults: 04/15/18 16:07 Consult to Cardiology [CONS] Routine Comment: Consulting Provider: Cardiology [facility] Reason for Consult: Abnormal stress Time Notified: 16:08 Call Completed: Yes Discharging clinician: Estephania Lopez Anticipated date of discharge: 04/17/18 - Constitutional Vitals: Temp Pulse Resp BP Pulse Ox 98.5 F 64 16 111/70 95 04/17/18 11:02 04/17/18 11:02 04/17/18 11:02 04/17/18 11:02 04/17/18 11:02 General appearance: Present: cooperative, A&O X 3, pleasant, no acute distress, obese, answers questions appropriately - Head Head exam: Present: atraumatic, normocephalic - Eye Eye exam: Present: PERRL, conjuntiva pink, sclera anicteric Pupils: Present: PERRL - Neck Neck exam general surgery: Present: supple, trachea midline. Absent: lymphadenopathy - Respiratory Respiratory exam: Present: CTAB. Absent: accessory muscle use, rales, rhonchi, wheezes - Cardiovascular Cardiovascular exam: Present: RRR, +S1, +S2. Absent: diastolic murmur, gallop, rubs, systolic murmur - GI/Abdominal GI/Abdominal exam: Present: normal bowel sounds, soft, no peritoneal signs. Absent: distended, tenderness - Extremities Exam Extremities exam: Present: warm, radial pulses palpable and symmetrical. Absent : calf tenderness, cyanotic, pedal edema - Neurological Exam Neurological exam: Present: CN II-XII intact, oriented X3, no focal deficits. Absent: pronater drift, facial droop, speech deficit - Skin Skin exam: Present: dry, intact - Patient Status Disposition: Home, Self-Care Condition: Good Functional capacity at discharge: independent ambulation Overall status at discharge: patient is back to baseline - Discharge Instructions Instructions: Chest Pain (DC), Diabetes Mellitus Type 2 in Adults (DC) Follow Up With: Lasha Comer DO [Primary Care Provider] - 04/26/18 12:00 pm Additional Instructions: Your hemoglobin A1c is 9.4%, average blood sugar likely close to 250. Please follow-up with your primary care physician to address uncontrolled diabetes - Diet and Activity Activity: increase activity as tolerated Diet: diabetic diet
== END 2018-04-17 14:05 | disposition home or self-care (01) ==
LOC: EMEROO 11:34 → 3BNU 11:34
PROVIDERS: ADMIT Hospitalist; ATTEND Hospitalist